=== PATIENT | female | born 1970 | race American Indian/Alaskan Native ===

== ENCOUNTER 2017-09-11 00:37 | Emergency (ER) | payer OTHER, BC ==
[2017-09-11] MEDS ORDERED: CATAPRES PO ONE (01:45)
[2017-09-11] MEDS ORDERED: TORADOL IM ONE (06:20)
[2017-09-11] MEDS ORDERED: NORCO 5/325 PO ONE (06:20)
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
[2017-09-11 07:54] VITALS: BP 139/78
== END 2017-09-11 07:55 | disposition home or self-care (01) ==
LOC: ED 00:37
DX: S80.02XA Contusion of left knee, initial encounter (principal); I10 Essential (primary) hypertension; M79.1 Myalgia; E11.9 Type 2 diabetes mellitus without complications; Z88.0 Allergy status to penicillin; V89.2XXA Person injured in unspecified motor-vehicle accident, traffic, initial encounter; Y93.89 Activity, other specified; Y92.89 Other specified places as the place of occurrence of the external cause; Y99.8 Other external cause status
CPT/HCPCS: 73562; 96372; 99283; J1885